=== PATIENT | female | born 1980 | race Caucasian/White ===

== ENCOUNTER 2021-04-19 19:15 | Emergency (ER) | payer BC, SELFPAY ==
[2021-04-19 19:27] VITALS: BP 122/71; PULSE 100; RESP 16; TEMP 36.6; O2SAT 98
--- NOTE | 2021-04-19 19:46 | ED.SKABFB ---
HPI - Skin/Abscess/Foreign Bdy General Chief complaint: Skin/Abscess/Foreign Body Stated complaint: LICE/EYE REDNESS Source: patient and RN notes reviewed Limitations: no limitations History of Present Illness HPI narrative: The patient, previously healthy non-smoker/nondrinker does not wear eyeglasses/contacts, presents with left eye discomfort. Patient states she was recently treated for lice with 5% Elimite. She now notes that her arms have improved but she has eyebrow and eyelash discomfort. This is associated with mild eye discharge, photophobia and redness. Patient advised to see eye doctor in follow-up Related Data Home Medications Medication Instructions Recorded Confirmed Wellbutrin 04/19/21 metoprolol tartrate 04/19/21 Allergies Allergy/AdvReac Type Severity Reaction Status Date / Time meperidine Allergy Mild Anxiety Verified 09/10/19 17:09 metoclopramide Allergy Mild Anxiety Verified 09/10/19 17:09 Penicillins Allergy Mild Rash Verified 09/10/19 17:09 promethazine Allergy Mild RESTLESS Verified 09/10/19 17:09 LEG SYNDROME adhesive Allergy Unknown RASH Verified 09/10/19 17:09 ampicillin Allergy Unknown Rash Verified 09/10/19 17:09 KETOROLAC TROMETHAMINE Allergy Mild Abdominal Uncoded 09/10/19 17:09 Pain Review of Systems Review of Systems: Narrative: General/Constitutional: No weight loss,fever Eyes: REPORTS: Redness,discharge Ears/Nose/Throat: No: Epistaxis,ear discharge Respiratory: Denies: Hemoptysis Gastrointestinal: No Vomiting, Bleeding-rectal Skin: No Lumps, eruption Neurologic: No Focal Weakness,Sz Hematologic: Denies: Petechiae/Purpura Psychiatric: No: Suicida ideationl All Other Systems: Reviewed and Negative PMFSH Comments At time of signature, agree with nursing past medical, surgical, social and family history. There is no relevant family history pertinent to the presenting complaint Exam Narrative: Exam Narrative: General Appearance: Well nourished, No distress EYE: PERRLA , Mpky-ovfukaxb-vjuenn: excoriated eyebrow, EOMI, Lens nl, Nl corneas -no fluorescein uptake, anterior chamber deep, Conjunctiva injection Ears: External ear normal, Auditory canal normal Nose: Normal nose, Nares clear Mouth/Throat: Normal appearing, Normal lips Neck: Supple, No adenopathy Respiratory: Airway patent, No respiratory distress Skin: Warm, Dry, no nits seen; scattered acneiform and follicular changes on the face Neurological: A&O x3, CN II-X intact Psychiatric: Normal mood, Normal affect Course Vital Signs Vital signs: Vital Signs Temperature 98 F 04/19/21 19:27 Pulse Rate 100 04/19/21 19:27 Respiratory Rate 16 04/19/21 19:27 Blood Pressure 122/71 04/19/21 19:27 Pulse Oximetry 98 04/19/21 19:27 Temperature 98 F 04/19/21 19:27 Pulse Rate 100 04/19/21 19:27 Respiratory Rate 16 04/19/21 19:27 Blood Pressure 122/71 04/19/21 19:27 Pulse Oximetry 98 04/19/21 19:27 Discharge Plan Discharge Clinical Impression: Pruritic condition Conjunctivitis Qualifiers: Conjunctivitis type: acute Acute conjunctivitis type: unspecified Laterality: left Qualified Code(s): H10.32 - Unspecified acute conjunctivitis, left eye Patient Disposition: Home, Self-Care Condition: Stable Instructions: Antibiotic Form, Conjunctivitis (ED) Additional Instructions: See eye doctor in follow-up if not improved Take clindamycin with food, probiotic; stop if diarrhea occurs Prescriptions: New sulfacetamide sodium [Bleph-10] 10 % drops 1 drp LEFT EYE Q4H Qty: 5 RF: 0 clindamycin HCl 300 mg capsule 300 mg PO TID Qty: 15 RF: 0 permethrin [Elimite] 5 % cream 1 applic topical Q10D Qty: 60 RF: 0 No Action Wellbutrin RF: 0 metoprolol tartrate RF: 0 Follow-up/Referrals: PHYSICIAN,ACCOUNTING/FINANCE TUTOR [Primary Care Provider] -
== END 2021-04-19 19:54 | disposition home or self-care (01) ==
PROVIDERS: Emergency Provider Emergency Medicine
DX: H10.32 Unspecified acute conjunctivitis, left eye (principal); L29.9 Pruritus, unspecified
CPT/HCPCS: 99213; A9270; G0463

== ENCOUNTER 2021-05-18 10:09 | Emergency (ER) | payer BC, SELFPAY ==
[2021-05-18 10:14] VITALS: BP 98/67; PULSE 74; RESP 12; TEMP 36.4; O2SAT 99
--- NOTE | 2021-05-18 10:19 | ED.SKABFB ---
HPI - Skin/Abscess/Foreign Bdy General Chief complaint: Skin/Abscess/Foreign Body Stated complaint: pos scabies Source: patient and RN notes reviewed Mode of arrival: ambulatory History of Present Illness HPI narrative: This is a 40-year-old female who presented to urgent care with complaints of skin irritation and bugs crawling out of her skin. Patient was previously here and was treated for scabies she did note that she started her medication for scabies but discontinued the use of because she thought she contaminated the medication and witnessed worms crawling in the medication. Patient does have small open scabs on her upper and lower extremity. She notes that she saw worms crawling from underneath her skin on her previous visit to urgent care as well. Patient also noted that she has recently had a medication adjustment from her psychiatrist. Inform patient that she needs to contact her psychiatrist again and inform him of her situation and her anxiety. I did prescribe her new medication for scabies and instructed her to fumigate her home for fleas in her dog as well. The patient denies SOB, CP, palpitation, extremity numbness, lightheadedness, dizziness, constipation, diarrhea, chills, or fever. Patient did deny any suicidal or homicidal ideations MD complaint: laceration and insect bite/sting Location: generalized Related Data Home Medications Medication Instructions Recorded Confirmed Wellbutrin 04/19/21 metoprolol tartrate 04/19/21 Allergies Allergy/AdvReac Type Severity Reaction Status Date / Time meperidine Allergy Mild Anxiety Verified 05/18/21 10:15 metoclopramide Allergy Mild Anxiety Verified 05/18/21 10:15 Penicillins Allergy Mild Rash Verified 05/18/21 10:15 promethazine Allergy Mild RESTLESS Verified 05/18/21 10:15 LEG SYNDROME adhesive Allergy Unknown RASH Verified 05/18/21 10:15 ampicillin Allergy Unknown Rash Verified 05/18/21 10:15 KETOROLAC TROMETHAMINE Allergy Mild Abdominal Uncoded 05/18/21 10:15 Pain Review of Systems Review of Systems: Narrative: A 14 organ system Review of Systems was performed and pertinent positives included in the HPI, otherwise remaining ROS is negative. All systems reviewed & are unremarkable except as noted in HPI and below PMFSH Family History Family History (Updated 05/18/21 @ 10:20 by KHANG Ramos) Other Family history non-contributory Exam Narrative: Exam Narrative: GENERAL: This is a well-nourished, well-developed patient, in no apparent distress. HEAD: normocephalic, atraumatic. EYES: PERRL. Sclera clear/white. Vision is grossly intact. EARS: External ears normal, auditory canals clear and without drainage, TMs normal without perforation. Hearing grossly intact. NOSE: External nose normal with no obvious nasal discharge, nares without redness, no rhinorrhea. THROAT: Mucous membranes moist, posterior pharynx clear. NECK: Neck supple, non-tender without lymphadenopathy, masses or thyromegaly. CARDIOVASCULAR: Regular rate and rhythm without murmurs, gallops, or rubs. RESPIRATORY: Clear to auscultation. Breath sounds equal bilaterally. No wheezes, rales, or rhonchi. GASTROINTESTINAL: Abdomen soft, non-tender, nondistended. Bowel sounds are active. No hepato-splenomegaly, or palpable masses. No guarding. SKIN: Old and new open and close pinpoint lesions on generalized body including face NEURO: awake, alert, and oriented to person, place and time. There were no obvious focal neurologic abnormalities. Steady gait EXTREMITIES: Normal range of motion. No edema. No calf tenderness. Negative Homans sign bilaterally. BACK: Nontender without deformity or crepitance. No flank tenderness. Course Course Emergency Course: Patient prescribed medication for scabies also given prednisone with hydrocortisone and instructed to see psychiatrist Vital Signs Vital signs: Vital Signs Temperature 97.5 F L 05/18/21 10:14 Pulse Rate 74 05/18/21 10
== END 2021-05-18 10:46 | disposition home or self-care (01) ==
PROVIDERS: Emergency Provider Nurse Practitioner
DX: L25.9 Unspecified contact dermatitis, unspecified cause (principal); T14.8XXA Other injury of unspecified body region, initial encounter; W57.XXXA Bitten or stung by nonvenomous insect and other nonvenomous arthropods, initial encounter
CPT/HCPCS: 99213; G0463

== ENCOUNTER 2022-06-06 17:55 | Emergency (ER) | payer BC, SELFPAY ==
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
[2022-06-06 18:01] VITALS: BP 120/73; PULSE 107; RESP 16; TEMP 37.1; O2SAT 100
== END 2022-06-06 18:50 | disposition home or self-care (01) ==
PROVIDERS: Emergency Provider Nurse Practitioner Family
DX: F41.9 Anxiety disorder, unspecified (principal); Z76.0 Encounter for issue of repeat prescription; Z86.73 Personal history of transient ischemic attack (TIA), and cerebral infarction without residual deficits
CPT/HCPCS: 99213; G0463

== ENCOUNTER 2022-07-28 16:27 | Emergency (ER) | payer BC, SELFPAY ==
--- NOTE | 2022-07-28 16:32 | ED.SKABFB ---
HPI - Skin/Abscess/Foreign Bdy General Chief complaint: Skin/Abscess/Foreign Body Stated complaint: Poison Rosa Time Seen by Provider: 07/28/22 16:32 Source: patient and RN notes reviewed History of Present Illness HPI narrative: Patient is a 41-year-old female who presents the urgent care with complaints of itchy poison rosa to the face, chest and right ankle. Patient states she noticed it at 2 AM this morning and has not taken anything [id number] for her symptoms. Patient also states that she needs a refill of her metoprolol until she is able to see her primary care doctor. Patient states she has a couple pills left and follows up with her new PCP, within the next week. No other acute complaints. No acute distress noted. Patient aware of the plan of care. Some parts of this dictation were generated by voice recognition software and may contain typographical and/or grammatical inaccuracies. Related Data Allergies Allergy/AdvReac Type Severity Reaction Status Date / Time adhesive Allergy Mild RASH Verified 07/28/22 16:49 ampicillin Allergy Mild Rash Verified 07/28/22 16:49 Penicillins Allergy Mild Rash Verified 07/28/22 16:49 ketorolac [From Toradol] AdvReac Mild Nausea and Verified 07/28/22 16:49 Vomiting meperidine AdvReac Mild Anxiety Verified 07/28/22 16:49 metoclopramide AdvReac Mild Anxiety Verified 07/28/22 16:49 promethazine AdvReac Mild RESTLESS Verified 07/28/22 16:49 LEG SYNDROME Review of Systems Review of Systems: CONSTITUTIONAL: Denies fever, chills, or sweats. EYES: Denies visual changes, redness, or discharge. ENT: Denies rhinorrhea, congestion, sore throat, or otalgia. CARDIOVASCULAR: Denies chest pain, palpitations, or edema. RESPIRATORY: Denies cough or dyspnea. GASTROINTESTINAL: Denies abdominal pain, nausea, vomiting, or diarrhea. GENITOURINARY: Denies dysuria or hematuria. SKIN: Reports of itchy poison rosa to the face, chest and right ankle MUSCULOSKELETAL: Denies back pain, joint pain, or myalgia. NEUROLOGIC: Denies headache, numbness, or weakness. PSYCHIATRIC: Reports of history of anxiety All other systems reviewed are negative, except as documented in HPI. [facility] Family History Family History (System 12/29/21 @ 17:12 by Emani Lindsay) Mother Family history of elevated blood lipids Other Family history non-contributory Social History Social History (System 12/29/21 @ 17:12 by Emani Lindsay) Alcohol intake: current Comments At the time of my signature, I reviewed and agree with the nursing past medical, surgical, social, and family history. There is no relevant family history pertinent to the patient complaint. Exam Narrative: GENERAL: This is a well-nourished, well-developed patient, notable anxiety HEAD: normocephalic, atraumatic. EYES: PERRL. Sclera clear/white. Vision is grossly intact. EARS: External ears normal NOSE: External nose normal with no obvious nasal discharge, nares without redness, no rhinorrhea. THROAT: Mucous membranes moist NECK: Neck supple, non-tender without lymphadenopathy, masses or thyromegaly. CARDIOVASCULAR: Regular rate and rhythm without murmurs, gallops, or rubs. RESPIRATORY: Clear to auscultation. Breath sounds equal bilaterally. No wheezes, rales, or rhonchi. SKIN: Erythemic Rhus dermatitis scattered throughout the face, chest and right lateral malleolus NEURO: awake, alert, and oriented to person, place and time. There were no obvious focal neurologic abnormalities. EXTREMITIES: No clubbing, cyanosis, or edema. Course Course Level of Care: Express Care Visit Vital Signs Vital signs: Vital Signs Temperature 99.8 F H 07/28/22 16:40 Pulse Rate 135 H 07/28/22 16:40 Respiratory Rate 16 07/28/22 16:40 Blood Pressure 108/73 07/28/22 16:40 Pulse Oximetry 100 07/28/22 16:40 Oxygen Delivery Room Air 07/28/22 16:40 Temperature 99.8 F H 07/28/22 16:40 Pulse Rate 135 H 07/28/22 16:40 Respiratory Rate 16
[2022-07-28 16:40] VITALS: BP 108/73; PULSE 135; RESP 16; TEMP 37.7; O2SAT 100
== END 2022-07-28 17:05 | disposition home or self-care (01) ==
PROVIDERS: Emergency Provider Nurse Practitioner Family
DX: L23.7 Allergic contact dermatitis due to plants, except food (principal); Z86.73 Personal history of transient ischemic attack (TIA), and cerebral infarction without residual deficits
CPT/HCPCS: 99213; G0463

== ENCOUNTER 2023-01-19 18:00 | Emergency (ER) | payer BC, SELFPAY ==
[2023-01-19 18:06] VITALS: BP 105/77; PULSE 82; RESP 20; TEMP 36.6; O2SAT 100
--- NOTE | 2023-01-19 18:26 | PC.NURSE ---
DUPLICATE CHART NOTED. NITIN GUY PT ACCESS STAFF SENT EMAIL TO MERGE CHARTS TOGETHER. GHULAM FERNANDEZ RN.
--- NOTE | 2023-01-19 18:32 | ED.ALLEREA ---
HPI - Allergic Reaction General Chief complaint: Skin/Abscess/Foreign Body Stated complaint: rash all over Time Seen by Provider: 01/19/23 18:32 History of Present Illness HPI narrative: PATIENT PRESENTS WITH HIVES TO BOTH ARMS FEET AND LEGS. NO RESPIRATORY PROBLEMS NO CHANGE IN LIFE STYLE PATIENT HAS APPLIED HYDROCORTISONE CREAM WITH NO RELEIF. Related Data Home Medications Medication Instructions Recorded Confirmed bupropion HCl 300 mg 24 hr tablet, 300 mg PO DIRECTED 01/19/23 01/19/23 extended release metoprolol succinate 100 mg 100 mg PO DIRECTED 01/19/23 01/19/23 tablet,extended release 24 hr Allergies Allergy/AdvReac Type Severity Reaction Status Date / Time adhesive Allergy Rash Verified 01/19/23 18:26 ampicillin Allergy Rash Verified 01/19/23 18:26 Penicillins Allergy Rash Verified 01/19/23 18:26 ketorolac [From Toradol] AdvReac Nausea and Verified 01/19/23 18:26 Vomiting meperidine AdvReac Anxiety Verified 01/19/23 18:26 metoclopramide AdvReac Anxiety Verified 01/19/23 18:26 promethazine AdvReac Other Verified 01/19/23 18:26 Review of Systems Review of Systems: CONSTITUTIONAL: DENIES FEVER, CHILLS, OR SWEATS. EYES: DENIES VISUAL CHANGES, REDNESS, OR DISCHARGE. ENT: DENIES RHINORRHEA, CONGESTION, SORE THROAT, OR OTALGIA. CARDIOVASCULAR: DENIES CHEST PAIN, PALPITATIONS, OR EDEMA. RESPIRATORY: DENIES COUGH OR DYSPNEA. GASTROINTESTINAL: DENIES ABDOMINAL PAIN, NAUSEA, VOMITING, OR DIARRHEA. GENITOURINARY: DENIES DYSURIA OR HEMATURIA. SKIN: DENIES RASH OR ITCHING. MUSCULOSKELETAL: DENIES BACK PAIN, JOINT PAIN, OR MYALGIA. NEUROLOGIC: DENIES HEADACHE, NUMBNESS, OR WEAKNESS. PSYCHIATRIC: DENIES ANXIETY OR DEPRESSION. PMFSH Comments AT TIME OF SIGNATURE, AGREE WITH NURSING PAST MEDICAL, SURGICAL, SOCIAL AND FAMILY HISTORY. THERE IS NO RELEVANT FAMILY HISTORY PERTINENT TO THE PRESENTING COMPLAINT Exam Narrative: GENERAL: WELL-APPEARING, WELL-NOURISHED, AND IN NO ACUTE DISTRESS. HEAD: NORMOCEPHALIC, ATRAUMATIC. EYES: PERRLA AND EOMI. ENT: NARES CLEAR, NO RHINORRHEA OR EPISTAXIS. MUCOUS MEMBRANES MOIST. NECK: SUPPLE. CHEST: CLEAR TO AUSCULTATION. NO RESPIRATORY DISTRESS. HEART: REGULAR RATE AND RHYTHM. NO MURMUR HEARD. NORMAL PERIPHERAL PULSES. ABDOMEN: SOFT, NONTENDER, NONDISTENDED, NORMAL ACTIVE BOWEL SOUNDS. EXTREMITIES: NORMAL RANGE OF MOTION. NO EDEMA. SKIN: WARM, DRY, NO RASH. NON SPECIFIC GENERALIZED RASH. NO FLUID FILLED LESIONS, NO VESICLES, NO HIVES OR URTICARIA, NO BURROWS OR RASH IN WEB SPACES TO INDICATE SCABIES, NO CONCERN FOR CELLULITIS OR ABSCESS FORMATION. NO PURPURA OR PETECHIA. DOES NOT INVOLVE THE SOLES OF FEET OR PALMS OF HANDS OR THE MUCOSAL MEMBRANES. NO SLOUGHING OR SWELLING OF TONGUE OR LIPS. NEURO: NO FOCAL DEFICITS. ALERT AND ORIENTED X3. SORIN COMA SCALE EYE OPENING: SPONTANEOUS 4 SORIN COMA SCALE MOTOR: OBEYS COMMANDS 6 SORIN COMA SCALE VERBAL: ORIENTED 5 SORIN COMA SCALE TOTAL 15 Course Course Level of Care: Express Care Visit Vital Signs Vital signs: Vital Signs Temperature 36.6 C 01/19/23 18:06 Pulse Rate 82 01/19/23 18:06 Respiratory Rate 20 01/19/23 18:06 Blood Pressure 105/77 01/19/23 18:06 Pulse Oximetry 100 01/19/23 18:06 Oxygen Delivery Room Air 01/19/23 18:06 Temperature 36.6 C 01/19/23 18:06 Pulse Rate 82 01/19/23 18:06 Respiratory Rate 20 01/19/23 18:06 Blood Pressure 105/77 01/19/23 18:06 Pulse Oximetry 100 01/19/23 18:06 Oxygen Delivery Room Air 01/19/23 18:06 I reviewed all medications, tests and and results of this visit with patient. Patient acknowledged understanding. Patient was discharged with instructions to follow up with PCP or specialist in clinic closely in followup, or to immediately return to the ED for any worsening or concerning signs and symptoms as discussed during this ED visit. I discussed high risk symptoms (red flag) with the patient that would warrant immediate re
[2023-01-19] MEDS: diphenhydrAMINE HCl INJ 50 MG/ML VIAL IM (18:45)
[2023-01-19] MEDS: methylPREDNISolone SOD SUCC 125 MG VIAL IM (18:45)
== END 2023-01-19 18:53 | disposition home or self-care (01) ==
PROVIDERS: Emergency Provider Nurse Practitioner Family; PCP Internal Medicine
DX: L50.9 Urticaria, unspecified (principal); I10 Essential (primary) hypertension
CPT/HCPCS: 96372; 99214; G0463; J1200; J2930

== ENCOUNTER 2024-05-24 11:06 | Emergency (ER) | payer BC, SELFPAY ==
[2024-05-24 11:12] VITALS: BP 110/84; PULSE 107; RESP 20; TEMP 36.2; O2SAT 100
--- NOTE | 2024-05-24 11:22 | ED.GENADULT ---
HPI - General Adult General Chief complaint: Unspecified Stated complaint: prescription refill History of Present Illness HPI narrative: Patient presents requesting a refill on her metoprolol. Patient states she has not been able to get in to see her primary care provider to get a refill. Patient denies any shortness of breath no chest pain. Patient has the bottle for refill prescription with her at this time. Patient denies any other complaints or concerns at this time. Related Data Allergies Allergy/AdvReac Type Severity Reaction Status Date / Time adhesive Allergy Rash Verified 01/22/23 15:06 ampicillin Allergy Rash Verified 01/22/23 15:06 Penicillins Allergy Rash Verified 01/22/23 15:06 ketorolac [From Toradol] AdvReac Nausea and Verified 01/22/23 15:06 Vomiting meperidine AdvReac Anxiety Verified 01/22/23 15:06 metoclopramide AdvReac Anxiety Verified 01/22/23 15:06 promethazine AdvReac Other Verified 01/22/23 15:06 Review of Systems Review of Systems: CONSTITUTIONAL: Denies fever, chills, or sweats. EYES: Denies visual changes, redness, or discharge. ENT: Denies rhinorrhea, congestion, sore throat, or otalgia. CARDIOVASCULAR: Denies chest pain, palpitations, or edema. RESPIRATORY: Denies cough or dyspnea. GASTROINTESTINAL: Denies abdominal pain, nausea, vomiting, or diarrhea. GENITOURINARY: Denies dysuria or hematuria. SKIN: Denies rash or itching. MUSCULOSKELETAL: Denies back pain, joint pain, or myalgia. NEUROLOGIC: Denies headache, numbness, or weakness. PSYCHIATRIC: Denies anxiety or depression. PMFSH Family History Family History (System 01/22/23 @ 15:06 by Sloane Huber) Mother Family history of elevated blood lipids Other Family history non-contributory Social History Social History (System 01/22/23 @ 15:06 by Sloane Huber) Alcohol intake: current Comments At time of signature, agree with nursing past medical, surgical, social and family history. There is no relevant family history pertinent to the presenting complaint Exam Narrative: GENERAL: Well-appearing, well-nourished, and in no acute distress. HEAD: Normocephalic, atraumatic. EYES: PERRLA and EOMI. ENT: Nares clear, no rhinorrhea or epistaxis. Mucous membranes moist. NECK: Supple. CHEST: Clear to auscultation. No respiratory distress. HEART: Regular rate and rhythm. No murmur heard. Normal peripheral pulses. ABDOMEN: Soft, nontender, nondistended, normal active bowel sounds. EXTREMITIES: Normal range of motion. No edema. SKIN: Warm, dry, no rash. NEURO: No focal deficits. Alert and oriented x3. [place] Coma Scale Eye Opening: Spontaneous 4 [place] Coma Scale Motor: Obeys Commands 6 [place] Coma Scale Verbal: Oriented 5 [place] Coma Scale Total 15 Course Course Level of Care: Express Care Visit Vital Signs Vital signs: Vital Signs Temperature 36.2 C L 05/24/24 11:12 Pulse Rate 107 H 05/24/24 11:12 Respiratory Rate 20 05/24/24 11:12 Blood Pressure 110/84 05/24/24 11:12 Pulse Oximetry 100 05/24/24 11:12 Oxygen Delivery Room Air 05/24/24 11:12 Temperature 36.2 C L 05/24/24 11:12 Pulse Rate 107 H 05/24/24 11:12 Respiratory Rate 20 05/24/24 11:12 Blood Pressure 110/84 05/24/24 11:12 Pulse Oximetry 100 05/24/24 11:12 Oxygen Delivery Room Air 05/24/24 11:12 Discussed with patient need to follow up with primary care provider for re-evaluation and importance to maintain medication compliance and follow-up with primary care provider for prescription renewal. Discussed all red flags and when to go to ER. Medical Decision Making Vital Signs Vital Signs: Vital Signs Temperature 36.2 C L 05/24/24 11:12 Pulse Rate 107 H 05/24/24 11:12 Respiratory Rate 20 05/24/24 11:12 Blood Pressure 110/84 05/24/24 11:12 Pulse Oximetry 100 05/24/24 11:12 Oxygen Delivery Room Air 05/24/24 11:12 Temperature 36.2 C L 05/24/24 11:12 Pulse Rate 107 H
== END 2024-05-24 11:30 | disposition home or self-care (01) ==
PROVIDERS: Emergency Provider Nurse Practitioner Family
DX: Z76.0 Encounter for issue of repeat prescription (principal); I10 Essential (primary) hypertension; Z86.73 Personal history of transient ischemic attack (TIA), and cerebral infarction without residual deficits
CPT/HCPCS: 99211; G0463

== ENCOUNTER 2024-08-02 17:48 | Emergency (ER) | payer BC, SELFPAY ==
[2024-08-02 17:58] VITALS: BP 97/72; PULSE 94; RESP 18; TEMP 37; O2SAT 100
--- NOTE | 2024-08-02 18:46 | ED.GENADULT ---
HPI - General Adult General Chief complaint: Upper Respiratory Infection Stated complaint: Cough up Blood/Chest Congestion/Urinary Problem Source: patient, RN notes reviewed and old records reviewed Mode of arrival: ambulatory Limitations: no limitations History of Present Illness HPI narrative: 43 year old female presents to [facility] care with complaints of having 2 day history of cough with chest tightness and heaviness and post nasal drainage. Patient reports that she coughed this morning hard and did have some blood in her sputum but didn't have any further blood in sputum throughout the day. Patient reports that she has some lower back discomfort across her back and states history of kidney stones and would like urine check for blood, urine test ran with noted abnormalities indicating infection, Patient also states that she wants urine testing for STD's sent has new partner for past month. MD complaint: URI symptoms and cough, concern for STD exposure and UTI Onset (ago): week(s) (2) Severity scale (1-10): 4 Pain Consistency: intermittent Treatments prior to arrival: none Related Data Allergies Allergy/AdvReac Type Severity Reaction Status Date / Time adhesive Allergy Rash Verified 08/02/24 18:08 ampicillin Allergy Rash Verified 08/02/24 18:08 Penicillins Allergy Rash Verified 08/02/24 18:08 ketorolac [From Toradol] AdvReac Nausea and Verified 08/02/24 18:08 Vomiting meperidine AdvReac Anxiety Verified 08/02/24 18:08 metoclopramide AdvReac Anxiety Verified 08/02/24 18:08 promethazine AdvReac Other Verified 08/02/24 18:08 Review of Systems Review of Systems: CONSTITUTIONAL: Denies fever, chills, or sweats. EYES: Denies visual changes, redness, or discharge. ENT: Reports rhinorrhea, congestion,no sore throat, no otalgia. CARDIOVASCULAR: Denies chest pain, palpitations, or edema. states some chest heaviness with cough RESPIRATORY: Reports cough , dyspnea at times with exertion GASTROINTESTINAL: Denies abdominal pain, nausea, vomiting, or diarrhea. GENITOURINARY: Denies dysuria or hematuria. SKIN: Denies rash or itching. MUSCULOSKELETAL: Reports lower back pain, joint pain, or myalgia. NEUROLOGIC: Denies headache, numbness, or weakness. PSYCHIATRIC: Positive for history of anxiety or depression. All systems reviewed & are unremarkable except as noted in HPI and below PMFSH Past Medical History Medical History Kidney stone Palpitations Panic attacks TIA (transient ischemic attack) UTI (urinary tract infection) Surgical History Surgical History (Updated 08/02/24 @ 20:02 by Maureen Church NP) History of partial hysterectomy History of tonsillectomy and adenoidectomy Hx of appendectomy Hx of cholecystectomy Previous section Family History Family History Mother Family history of elevated blood lipids Other Family history non-contributory Social History Social History Smoking status: Current every day smoker Tobacco type: e-cigarettes/vaping Additional smoking assessment comments: former cigarette use Alcohol intake: former Alcohol use details: no alcohol since 2017 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 There is no relevant family history pertinent to the presenting complaint Exam Narrative: GENERAL: Well-appearing, well-nourished, and in no acute distress. HEAD: Normocephalic, atraumatic. EYES: PERRLA and EOMI. ENT: Nares clear,clear rhinorrhea or epistaxis. Mucous membranes moist.TM's normal throat pink with no lesion or exudates,tonsil absent NECK: Supple.no lymphadenopathy CHEST: Clear to auscultation. No respirator
[2024-08-02 18:59] LABS: EDUAAPPEAR Cloudy; EDUABILI Negative (Negative); EDUABLOOD Trace (Negative); EDUACOLOR1 Yellow; EDUAGLUCOSE Negative (Negative); EDUAKETONE Negative (Negative); EDUALEUKO 1+ (Negative); EDUANITRATE Positive (Negative); EDUAPROTEIN Trace (Negative); EDUAUROBILI 0.2
[2024-08-05 14:23] LABS: Trichomonas Vag PCR DETECTED (NOT DETECTE)
[2024-08-05 14:57] LABS: Chlamydia trachomatis NOT DETECTED (NOT DETECTE); Neisseria gonorrhoeae PCR NOT DETECTED (NOT DETECTE)
== END 2024-08-02 19:10 | disposition home or self-care (01) ==
PROVIDERS: Emergency Provider Registered Nurse; PCP Internal Medicine
DX: J06.9 Acute upper respiratory infection, unspecified (principal); N39.0 Urinary tract infection, site not specified; B96.20 Unspecified Escherichia coli [E. coli] as the cause of diseases classified elsewhere; F17.290 Nicotine dependence, other tobacco product, uncomplicated; Z86.73 Personal history of transient ischemic attack (TIA), and cerebral infarction without residual deficits
CPT/HCPCS: 81003; 87077; 87086; 87186; 87491; 87591; 87661; 99213; G0463

== ENCOUNTER 2024-08-29 15:46 | Emergency (ER) | payer BC, SELFPAY ==
[2024-08-29 16:00] VITALS: BP 98/69; PULSE 80; RESP 18; TEMP 36.7; O2SAT 100
--- NOTE | 2024-08-29 16:16 | ED.FEMALEGU ---
HPI - Female Genitourinary General Chief complaint: Urogenital-Female Stated complaint: poss UTI Time Seen by Provider: 08/29/24 15:48 History of Present Illness HPI Narrative: Patient presents requesting being tested for STIs. Patient states 10 days ago she was tested and was positive for Trichomonas. Patient states she did take her full course of medication but did not refrain from sexual activity with her partner. Patient states her partner was also tested for Trichomonas and is asymptomatic. Patient is concerned that her infection did not totally resolved. She denies any abdominal pain no pelvic pain no suprapubic pain no flank pain no gross hematuria. Related Data Allergies Allergy/AdvReac Type Severity Reaction Status Date / Time adhesive Allergy Rash Verified 08/29/24 15:59 ampicillin Allergy Rash Verified 08/29/24 15:59 Penicillins Allergy Rash Verified 08/29/24 15:59 ketorolac [From Toradol] AdvReac Nausea and Verified 08/29/24 15:59 Vomiting meperidine AdvReac Anxiety Verified 08/29/24 15:59 metoclopramide AdvReac Anxiety Verified 08/29/24 15:59 promethazine AdvReac Other Verified 08/29/24 15:59 Review of Systems Review of Systems: CONSTITUTIONAL: Denies fever, chills, or sweats. EYES: Denies visual changes, redness, or discharge. ENT: Denies rhinorrhea, congestion, sore throat, or otalgia. CARDIOVASCULAR: Denies chest pain, palpitations, or edema. RESPIRATORY: Denies cough or dyspnea. GASTROINTESTINAL: Denies abdominal pain, nausea, vomiting, or diarrhea. GENITOURINARY: Denies dysuria or hematuria. SKIN: Denies rash or itching. MUSCULOSKELETAL: Denies back pain, joint pain, or myalgia. NEUROLOGIC: Denies headache, numbness, or weakness. PSYCHIATRIC: Denies anxiety or depression. [facility] Past Medical History Medical History (Updated 08/29/24 @ 16:23 by GEORGI Mendenhall) Kidney stone Palpitations Panic attacks TIA (transient ischemic attack) UTI (urinary tract infection) Surgical History Surgical History (Updated 08/02/24 @ 20:02 by Maureen Church NP) History of partial hysterectomy History of tonsillectomy and adenoidectomy Hx of appendectomy Hx of cholecystectomy Previous section Family History Family History Mother Family history of elevated blood lipids Other Family history non-contributory Social History Social History Smoking status: Current every day smoker Tobacco type: e-cigarettes/vaping Additional smoking assessment comments: former cigarette use Alcohol intake: former Alcohol use details: no alcohol since 2017 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 There is no relevant family history pertinent to the presenting complaint Exam Narrative: GENERAL: Well-appearing, well-nourished, and in no acute distress. HEAD: Normocephalic, atraumatic. EYES: PERRLA and EOMI. ENT: Nares clear, no rhinorrhea or epistaxis. Mucous membranes moist. NECK: Supple. CHEST: Clear to auscultation. No respiratory distress. HEART: Regular rate and rhythm. No murmur heard. Normal peripheral pulses. ABDOMEN: Soft, nontender, nondistended, normal active bowel sounds. EXTREMITIES: Normal range of motion. No edema. SKIN: Warm, dry, no rash. NEURO: No focal deficits. Alert and oriented x3. [place] Coma Scale Eye Opening: Spontaneous 4 [place] Coma Scale Motor: Obeys Commands 6 [place] Coma Scale Verbal: Oriented 5 [place] Coma Scale Total 15 Course Course Level of Care: Express Care Visit Discharge Plan Discharge Clinical Impression: STI in female, Concern about STD in female without diagnosis Patient Disposition: Home, Self-Care Condition: Stable Instructions: Sexually Transmitted Diseases (ED), Safe Sex Practices (ED), Female Condom Use (ED) Additional Instructions: Please discuss testing and treating with all recent sexual partners, and advise testing as well. Please abstain from sexual activity for 7 days after treatment and until all sex partners have completed treatment, or until negative cultures result If treated for STD?s please consider being retested 3 months after treatment regardless if partners were treated. This can best be done at the Health Department or at [employer], PCP or [facility] does not test and treat for all STD?s. If you are a male, Trichomoniasis is not tested for here. Also, we do not test for HIV, HSV. Syphilis, or Hepatitis, but these are available at the health department listed below. STD Clinic - Please do not engage in sexual activity for at least 7 days after being treated for STDs Prescriptions: New Zyrtec 10 mg capsule 10 mg PO DAILY 30 Days Qty: 30 0RF No Action metoprolol tartrate 50 mg tablet 50 mg PO BID Qty: 30 0RF Follow-up/Referrals: PHYSICIAN,RECORDING STUDIO SET UP WORKER [Primary Care Provider] - Raul Baptiste MD [Physician] -
[2024-08-29 16:24] LABS: EDUAAPPEAR Cloudy; EDUABILI Negative (Negative); EDUABLOOD Trace (Negative); EDUACOLOR1 Yellow; EDUAGLUCOSE Negative (Negative); EDUAKETONE Negative (Negative); EDUALEUKO 1+ (Negative); EDUANITRATE Negative (Negative); EDUAPROTEIN Negative (Negative); EDUASPGRAVITY 1.015; EDUAUROBILI 0.2
[2024-08-29 20:47] LABS: Trichomonas Vag PCR NOT DETECTED (NOT DETECTE)
[2024-08-29 21:11] LABS: Chlamydia trachomatis NOT DETECTED (NOT DETECTE); Neisseria gonorrhoeae PCR NOT DETECTED (NOT DETECTE)
--- NOTE | 2024-08-30 12:26 | PC.NURSE ---
Attempted to call lab results to patient, phone was not set up for some incoming calls. Restrictions were applied. Unable to leave a message.
== END 2024-08-29 16:25 | disposition home or self-care (01) ==
PROVIDERS: Emergency Provider Nurse Practitioner Family
DX: Z11.3 Encounter for screening for infections with a predominantly sexual mode of transmission (principal); N39.0 Urinary tract infection, site not specified; B96.1 Klebsiella pneumoniae [K. pneumoniae] as the cause of diseases classified elsewhere; Z86.73 Personal history of transient ischemic attack (TIA), and cerebral infarction without residual deficits; F17.290 Nicotine dependence, other tobacco product, uncomplicated
CPT/HCPCS: 81003; 87086; 87186; 87491; 87591; 87661; 99213; G0463

== ENCOUNTER 2025-07-16 10:53 | Emergency (ER) | payer BC, SELFPAY ==
--- OUTSIDE RECORDS SUMMARY | 2025-07-16 10:57 | XMS_ITS | Clinical Summary ---
Author Organization [facility] Address [address] [place] [address] Phone Care Team Providers Care Extension Professor Name Role Phone JoaquinSlaone Tadeo MCINTOSH, [employer] Primary Care Provider [phone]- [phone] Joseph Mclaughlin MD Unavailable Allergies Active Allergy Reactions Criticality Noted Date Comments Ampicillin Unknown 09/20/2015 Diphenhydramine Hcl (Sleep) Anxiety 10/12/2015 Prochlorperazine Maleate Anxiety 10/12/2015 Fentanyl Other (see Comments) 10/30/2024 Restless legs Promethazine Other (see Comments) 03/02/2025 Restless legs Metoclopramide Hcl Other (see Comments) 12/04/2015 STATES CAUSES LEG CRAMPS Ketorolac Tromethamine Rash Medium 09/20/2015 Medications cetirizine (ZyrTEC) 10 MG Tablet Take 1 Tablet by mouth daily. 90 Tablet 2 5 Active ciprofloxacin (CIPRO) 500 MG Tablet take 1 tablet by mouth every 12 hours for 7 days 5 Active valACYclovir (VALTREX) 1 GM Tablet Take 1 Tablet by mouth 2 times daily. 20 Tablet 5 Active cromolyn (OPTICROM) 4 % SolutionIndications :Allergic conjunctivitis of both eyes Place 1 Drop in affected eye(s) 4 times daily. Use in affected eye(s) until resolved 10 mL 5 Active buPROPion (WELLBUTRIN) 150 MG XL tablet TAKE 1 TABLET BY MOUTH ONCE DAILY IN THE MORNING 90 Tablet 5 Active metoprolol tartrate (LOPRESSOR) 50 MG TabletIndications:T achycardia Take 1 tablet by mouth twice daily 60 Tablet 2 5 Active Active Problems Problem Noted Date Diagnosed Date Insomnia 09/23/2018 Vitamin D deficiency 03/11/2018 Anxiety 12/04/2015 Tachycardia 12/04/2015 Intractable nausea and vomiting 12/04/2015 Hypokalemia 12/04/2015 Chest pain, non-cardiac 12/04/2015 Depression 09/20/2015 Weight loss 09/20/2015 Irritable bowel syndrome with diarrhea 5 Resolved Problems Problem Noted Date Diagnosed Date Resolved Date Kidney stone 10/31/2024 11/03/2024 Nephrolithiasis 10/31/2024 11/03/2024 TIA (transient ischemic attack) 11/03/2024 Encounters Date Type Department Care Team Description 05/24/2025 Telephone [facility] [address] [place] [id number] Sloane Nuñez APRN, [employer] Need Order 05/04/2025 Nurse Triage [address] [address] Sloane Nuñez APRN, [employer] Depression; Anxiety 04/24/2025 Refill [facility] [id number] [place] [address] Sloane Nuñez, ARNALDO, [employer] Medication Refill from Last 3 Months Immunizations Immunization Administration Dates Next Due Covid-19, Mrna, Lnp-s, Pf, T ris-sucrose, 30 Mcg/0.3 Ml ([employer]) 09/24/2023 Family History Medical History Relation Name Comments Heart Attack Father Stroke Father Lung Cancer Maternal Grandmother Depression Mother High Cholesterol Mother Uterine Cancer Mother Relation Name Status Comments Father Maternal Grandmother Mother Alive Social History Tobacco Use Types Packs/Day Years Used Date Smoking Tobacco: Former Cigarettes 0 02/26/2016 - 02/25/2017 Smokeless Tobacco: Never Tobacco Cessation:Counseling Given: Not Answered Alcohol Use Standard Drinks/Week Comments Not Currently 0 (1 standard drink = 0.6 oz pur e alcohol) [facility] Utilities Answer Date Recorded In the past 12 months has e electric, gas, oil, or water company threatened to shut off services in your home? Patient declined 10/31/2024 Social Connection and Isolation Panel Answer Date Recorded In a typical week, how many times do you talk on the phone with family, friends, or neighbors? Patient declined 10/31/2024 How often do you get togethe r with friends or relatives? Patient declined 10/31/2024 How often do you attend restorationism or congregation serv ices? Patient declined 10/31/2024 Do you belong to any clubs o r organizations such as restorationism groups, unions, fraternal or athletic groups, or school groups? Patient declined 10/31/2024 How often do you attend meet ings of the clubs or organizations you belong to? Patient declined 10/31/2024 Are you , , di vorced, , never , or living with a partner? Patient declined 10/31/2024 AUDIT-C Answer Date Recorded Q1: How often do you have a drink containing alc ohol? Patient declined 10/31/2024 Q2: How many drinks containi ng alcohol do you have on a typical day when you are drinking? Patient declined 10/31/2024 Q3: How often do you have si x or more drinks on one occasion? Patient declined 10/31/2024 Overall Financial Resource Strain (CARDIA) Answe r Date Recorded How hard is it for you to pa y for the very basics like food, housing, medical care, and heating? Patient declined 10/31/2024 PHQ-2 Answer Date Recorded Total Score - Questions 1-9 16 05/0 03/2025 [facility] - Occupational Stress Questionnaire Answer Date Recorded Do you feel stress - tense, restless, nervous, or anxious, or unable to sleep at night because your mind is troubled all the time - these days? Patient declined 10/31/2024 Exercise Vital Sign Answer Date Recorde d On average, how many days pe r week do you engage in moderate to strenuous exercise (like a brisk walk)? Patient declined On average, how many minutes do you engage in exercise at this level? Patient declined 10/31/2024 Hunger Vital Sign Answer Date Recorded Within the past 12 months, y ou worried that your food would run out before you got the money to buy more. Patient declined Within the past 12 months, t he food you bought just didn't last and you didn't have money to get more. Patient declined 01/2025 PRAPARE - Transportation Answer Date Re corded In the past 12 months, has l ack of transportation kept you from medical appointments or from getting medications? Patient declined 10/31/2024 In the past 12 months, has l ack of transportation kept you from meetings, work, or from getting things needed for daily living? Patient declined 10/31/2024 Housing Stability Vital Sign Answer Colton e Recorded In the last 12 months, was t here a time when you were not able to pay the mortgage or rent on time? Patient declined 10/31/19 25 In the past 12 months, how m any times have you moved where you were living? 0 10/31/2024 At any time in the past 12 m [facility], were you homeless or living in a [facility] (including now)? 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 Not on file Not on file Not on file Last Filed Vital Signs Vital Sign Reading Time Taken Comments Blood Pressure 100/68 04/01/2025 10:35 AM CDT Pulse 78 04/01/2025 10:35 AM CDT Temperature 36.6 C (97.9 F) 04/01/2025 10:35 AM CDT Respiratory Rate 20 04/01/2025 10:3 5 AM CDT Oxygen Saturation 100% 04/01/2025 10: 35 AM CDT Inhaled Oxygen Concentration - - Weight 57.5 kg (126 lb 11.2 oz) 025 10:35 AM CDT Height 154.9 cm (5' 1) 04/01/2025 10:3 5 AM CDT Body Mass Index 23.94 04/01/2025 10:35 AM CDT Plan of Treatment Health Maintenance Due Date Last Done Comments Mammogram 1978 TdaP Immunization 1978 Hepatitis B Immunization (1 of 3 - 19+ 3-dose series) 1997 Discussion re Starting/Frequency of Mammograms 2018 Cologuard 2023 Immunochemical Fecal Occult Blood 2023 Influenza Immunization (#1) 2025 SARS-COV-2 Immunization ( season) 2025 09/24/2023 Colonoscopy 04/11/2028 04/11/2018, 08/15/2015 Colorectal Cancer Screening 04/11/2028 Respiratory Syncytial Virus (RSV) Immunization (Adult) (1 - 1-dose 75+ series) 2053 Hepatitis C Virus (HCV) Screening Completed 10/27/2024 Human Papillomavirus (HPV) Immunization Aged Out No longer eligible b ased on patient's age to complete this topic Meningococcal Immunization (ACWY) Aged Out No longer eligible b ased on patient's age to complete this topic Pneumococcal Immunization Combined Aged Out No longer eligible b ased on patient's age to complete this topic Rotavirus Immunization Aged Out No lo nger eligible based on patient's age to complete this topic Medical Devices Explanted Type Area Business Development Analyst Device Identifier Shelf Expiration Date Model / Serial / Lot Stent Ureteral 5fr 2.1fr 24cm 2 Pigtail Curve 2 Durometer Taper Tip Loprfl Graduated Polaris Ultra - [id number] Implanted:Qty : 1 on 10/31/2024 by Joseph Mclaughlin MD at [facility] Explanted:Qty : 1 on 12/17/2024 at [facility] IMPLANT Left: Ureter JayCut 03/17/2027 [id number] / [id number] / [id number] Procedures Procedure Name Priority Date/Time Associated Diagnosis Comments LAB - MISCELLANEOUS 05/24/2025 1 2:00 AM CDT CHLAMYDIA, NEISSERIA, TRICHOMONAS BY CALIXTO (STD PANEL) 05/24/2025 12:00 AM CDT HEPATITIS C ANTIBODY Routine 10/27/2024 11:53 AM CATTLE RANCHER High risk sexual behavior, unspecified type HM COLONOSCOPY Routine 04/11/2018 from Last 3 Months or Most Recently Relevant to Health Maintenance Results * CHLAMYDIA, NEISSERIA, TRICHOMONAS BY CALIXTO (STD PANEL) (05/24/2025 12:00 AM CDT) 05/24/2025 us Provider Scan LAB SEND OUTS Final Result SCAN * LAB - MISCELLANEOUS (05/24/2025 12:00 AM CDT) 05/24/2025 us Provider Scan CHEMISTRY ORDERABLES Final Resul t Performing Organization Address City/[facility] Co de Phone Number SCAN * HEPATITIS C ANTIBODY (10/27/2024 11:53 AM CATTLE RANCHER) hepatitis C antibody 0.08 <1 S/CO 10/27/2024 10:58 PM CATTLE RANCHER [facility] Comment: Signal/Cutoff ratio < 0.79 is Nondetected Signal/Cutoff ratio 0.80-0.99 is Grayzone Signal/Cutoff ratio > 0.99 is Detected Supplemental assays are recommended if signal/cutoff ratio is >/=1.00. Signal/cutoff ratio result >/= 5.00 is 97% predictive of positivity for recombinant immunoblot assay (RIBA) and will be reported to the [place] Department of Public Health as required. Blood Venipuncture / Unknown 10/27/2024 11:53 AM CATTLE RANCHER 10/27/2024 11:53 AM CATTLE RANCHER us Sloane Nuñez BREAD WRAPPING MACHINE FEEDER, LABORER [employer] CHEMISTRY ORDERABLES Final Result Performing Organization Address City/[facility]/ZIP Co de Phone Number [facility] [address] [place] [address], [place] * COLONOSCOPY (04/11/2018) us Vaughn Álvarez MD PROCEDURE/MINOR SURGICAL ORDER POOJA Edited Result - Final from Last 3 Months or Most Recently Relevant to Health Maintenance Insurance MEDICAID BLUE CROSS [place] Advance Directives * Full Code (Latest Code Status on File) Date Activated Date Inactivated Comments 10/31/2024 1:21 AM CPR-Full Treatm ent: FULL ARREST: Attempt Resuscitation/CPR wit intubation and mechanical ventilation. PRE-ARREST: Use entire range of life support measures to stabilize the patient. * Full Code Date Activated Date Inactivated Comments 12/04/2015 5:47 PM 12/05/2015 8:08 PM Full Code: FULL ARREST: Attempt Resuscitation/CPR and use intubation and mechanical ventilation as indicated. PRE-ARREST: Use all measures to stabilize patient. Care Teams Extension Professor Relationship Specialty Start Date End Date Sloane Nuñez APRN, [employer] [address] [place] [address] PCP - General Certified Nurse Practitioner 10/27/24 Joseph Mclaughlin MD [address] [facility] [address] [place] [address] Consulting Physician Urology 11/09/24
--- OUTSIDE RECORDS SUMMARY | 2025-07-16 10:57 | XMS_ITS | Encounter Summary ---
Author Organization [facility] Address [address] [place] [address] Phone Care Team Providers Care Analytical Tech Name Role Phone Provider, None Primary Care Provider Unavailabl Sloane Beard APRN, MISDRAW HAND Primary Care Provider [phone]- [phone] Yasmin Luna Unavailable Unavailable Joseph Mclaughlin MD Unavailable Kayla SunW Unavailable Unavailab le Reason for Visit * Reason Comments Medication Refill Encounter Details Date Type Department Care Team (Late st Contact Info) Description 11/30/2021 Refill [facility] [place] [address] [place] [address] Tova Chaves Little, PAC [address] [place] [address] Medication Refill Social History Tobacco Use Types Packs/Day Years Used Date Smoking Tobacco: Former Cigarettes 0 02/26/2016 - 02/25/2017 Smokeless Tobacco: Never Alcohol Use Standard Drinks/Week Comments No 0 (1 standard drink = 0.6 oz pur e alcohol) Sexually Active Control Partners Comments Yes Male Comments No Sex and Gender Information Value Date Recorded Sex Assigned at Female 10/31/2024 12:21 AM HELPDESK MANAGER Legal Sex Female 8:44 PM CDT Gender Identity Female 10/31/2024 12:21 AM HELPDESK MANAGER Sexual Orientation Not on file 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 Not on file Not on file Not on file documented as of this encounter Plan of Treatment Not on file documented as of this encounter Visit Diagnoses Diagnosis Tachycardia Tachycardia, unspecified documented in this encounter Additional Health Concerns Assessment Noted Time PHQ-9 Depression Total Score: 16 018 10:00 AM CDT documented as of this encounter Care Teams Analytical Tech Relationship Specialty Start Date End Date Provider, None [place] PCP - General 07/24/22 10/26/24 Sloane Nuñez, SEAMAN OFFICER, MISDRAW HAND [address] [place] [address] PCP - General Certified Nurse Practitioner 10/27/24 Ysamin Luna Health Wire Inspector 10/29/24 11/13/24 Joseph Mclaughlin MD [address] [address] Consulting Physician Urology 11/09/24 Kayla Sun LSW [place] Laser Set Up Operator Retail Client Solutions Analyst 04/01/25 04/07/25 documented as of this encounter
--- OUTSIDE RECORDS SUMMARY | 2025-07-16 10:57 | XMS_ITS | Clinical Summary ---
Author Organization [facility] Address [facility] [place] [address] Care Team Providers Care Port Drier Name Role Phone None, Provider MD Primary Care Provider Unavaila ble Allergies Active Allergy Reactions Criticality Noted Date Comments Ampicillin Unknown 10/15/2019 Pt stated tolerated rocephin and amoxicillin Meperidine Unknown 10/15/2019 Promethazine Unknown 10/15/2019 Medications hydrOXYzine 10 MG tablet Take 1 tablet (10 mg total) by mouth 3 (three) times daily as needed. 30 tablet 10/15/2019 Active metoprolol succinate ER 25 MG 24 hr tablet Take 1 tablet (25 mg total) by mouth daily. 30 tablet 10/15/2019 Active Social History Tobacco Use Types Packs/Day Years Used Date Smoking Tobacco: Never Assessed Comments Unknown Sex and Gender Information Value Date Recorded Sex Assigned at Not on file Legal Sex Female 5:24 PM CDT Gender Identity Not on file Sexual Orientation Not on file Last Filed Vital Signs Vital Sign Reading Time Taken Comments Blood Pressure 106/85 10/15/2019 6:51 PM APPRAISAL COORDINATOR Pulse 91 10/15/2019 6:51 PM APPRAISAL COORDINATOR Temperature 37.1 C (98.7 F) 10/15/2019 6:51 PM APPRAISAL COORDINATOR Respiratory Rate 19 10/15/2019 6:51 PM APPRAISAL COORDINATOR Oxygen Saturation 98% 10/15/2019 6:51 PM APPRAISAL COORDINATOR Inhaled Oxygen Concentration - - Weight 61.9 kg (136 lb 7.4 oz) 10/15/2019 6:55 P M APPRAISAL COORDINATOR Height 154.9 cm (5' 1) 10/15/2019 6:51 PM APPRAISAL COORDINATOR Body Mass Index 25.78 10/15/2019 6:51 PM APPRAISAL COORDINATOR Plan of Treatment Health Maintenance Due Date Last Done Comments Cervical Cancer Screening Pa p Smear (Age 30 to 64) Every 3 Years 1978 Colorectal Cancer Screening Colonoscopy (10 Years) 1978 Annual Physical 1981 Hepatitis C 1996 DTaP, Tdap and Td Vaccines ( 1 - Tdap) 1997 Hepatitis B Vaccines (1 of 3 - 19+ 3-dose series) 1997 Cervical Cancer Screening Pa p with HPV Testing (Age 30 to 64) Every 5 Years 2008 Cervical Cancer Screening with HPV 2008 Mammogram Screening 2018 COVID-19 Vaccine ( - 2023-2 5 season) 2025 Meningococcal B Vaccine Aged Out No l onger eligible based on patient's age to complete this topic Meningococcal Vaccine Aged Out No rocael tish eligible based on patient's age to complete this topic Pneumococcal Vaccine: Pediat rics (0 to 5 Years) and At-Risk Patients (6 to 49 Years) Aged Out No longer eligible b ased on patient's age to complete this topic RSV Immunizations Under 20 Months Aged Out No longer eligible based on patient's age to complete this topic Insurance MEDICAID Care Teams Port Drier Relationship Specialty Start Date End Date None, Provider, PCP - General 10/15/19
[2025-07-16 10:58] VITALS: BP 96/71; PULSE 78; RESP 18; TEMP 36.1; O2SAT 100
--- NOTE | 2025-07-16 11:05 | ED_ITS ---
HPI - General Adult General Chief complaint: Wound/Laceration Stated complaint: covid test, cut by leonor nail on right thigh Time Seen by Provider: 07/16/25 11:30 Mode of arrival: ambulatory Limitations: no limitations History of Present Illness HPI narrative: 44-year-old female presents with multiple complaints. She reports she had a scratch with a leonor nail to her right thigh yesterday and she would like a tetanus shot. She reports the area is scabbing and she has been putting Neosporin and a Band-Aid on it. She denies any redness, warmth, swelling surrounding. She also reports she was exposed to COVID 3 days ago, yesterday s he started feeling unwell with body aches, runny nose. In the 3rd complaint she reports exposure to STDs, she has been having foul-smelling vaginal area and foul-smelling vaginal discharge. She reports urine frequency and urgency. Denies dysuria. She denies fever. Reports body aches MD complaint: Multiple complaint Related Data Home Medications ?Medication ?Instructions ?Recorded ?Confirmed ?Last Taken ?Type bupropion HCl 150 mg 24 hr tablet, mg PO 07/16/25 Unk nown History extended release Allergies Allergy/AdvReac Type Severity Reaction Status Date / Time fentanyl Allergy Unknown Unknown Verified 07/16/25 11:14 adhesive Allergy Rash Verified 07/16/25 11:06 ampicillin Allergy Rash Verified 07/16/25 11:06 Penicillins Allergy Rash Verified 07/16/25 11:06 ketorolac (From Toradol) AdvReac Nausea and Verified 07/16/25 11:06 Vomiting meperidine AdvReac Anxiety Verified 07/16/25 11:06 metoclopramide AdvReac Anxiety Verified 07/16/25 11:06 promethazine AdvReac Other Verified 07/16/25 11:06 Review of Systems Review of Systems: CONSTITUTIONAL: Reports malaise. Denies chills, sweats, or fever. EYES: Denies visual changes, redness, or discharge. ENT: Denies rhinorrhea, congestion. Denies sinus pain, otalgia or sore throat. CARDIOVASCULAR: Denies chest pain, palpitations, or edema. RESPIRATORY: Denies cough or dyspnea. GASTROINTESTINAL: Denies abdominal pain, vomiting, diarrhea. Reports nausea GENITOURINARY: Denies dysuria or hematuria. Reports frequency and urgency SKIN: Denies rash or itching. MUSCULOSKELETAL: Reports low back pain, and myalgia. NEUROLOGIC: Denies numbness, weakness, or headache. All systems reviewed & are unremarkable except as noted in HPI and below PMFSH Past Medical History Medical History (Updated 07/16/25 @ 11:52 by Maria Luz Truong NP) Kidney stone Panic attacks Palpitations TIA (transient ischemic attack) UTI (urinary tract infection) Surgical History Surgical History (Updated 08/02/24 @ 20:02 by Maureen Church NP) History of tonsillectomy and adenoidectomy Previous section Hx of cholecystectomy Hx of appendectomy History of partial hysterectomy Family History Family History Mother Family history of elevated blood lipids Other Family history non-contributory Social History Social History Smoking status: Current every day smoker Tobacco type: e-cigarettes/vaping Additional smoking assessment comments: former cigarette use Alcohol intake: former Alcohol use details: no alcohol since 2017 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 There is no relevant family history pertinent to the presenting complaint Exam Narrative: GENERAL: Well-appearing, well-nourished, and in no acute distress. HEAD: Normocephalic, atraumatic. EYES: PERRLA, sclera clear, and EOMI. No nystagmus. ENT: Nares clear. Mucous membranes moist. NECK: Supple. CHEST: No respiratory distress. Clear to auscultation. No bony deformities, no asymmetry. Speaks in full sentences. HEART: Regular rate and rhythm. No murmur heard. Normal peripheral pulses. ABDOMEN: Soft, nontender, nondistended, normal active bowel sounds, no palpable masses. EXTREMITIES: Normal range of motion. No edema. Normal strength and sensation. SKIN: Warm, dry, no visible rash. NEURO: Alert and oriented x3. No focal deficits. Cranial nerves II through XII grossly intact PSYCH: Normal mood and affect Course Course Emergency Course: Patient is aware of diagnosis, understands and agrees to treatment plan. Anticipatory guidance given. Patient agrees to follow-up as directed and is aware of reasons to seek care at the emergency department. Portions of this record may have been created with voice recognition software Level of Care: Express Care Visit Vital Signs Vital signs: Reviewed. Medical Decision Making MDM Narrative Medical decision making narrative: The patient was evaluated by myself in the express care. History is obtained from patient who is an independent historian and physical exam was performed.? Available medical records were reviewed at this time. ? Exam findings show no acute concerns or changes; patient is non-toxic appearing and is in no distress. Patient is appropriate for outpatient treatment and follow-up. ? I have evaluated and discussed social determinants of health with the patient that could potentially impact subsequent diagnosis and treatment plans. ? Differential diagnosis and treatment plan were discussed with the patient. Patient agrees with discussion and after shared medical decision making agrees with plan of care. All questions were answered to the patient's satisfaction. Critical Care Time Critical Care Time Critical Care Time: No Discharge Plan Discharge Clinical Impression: Urinary tract infection, Possible exposure to STD, Abrasion Patient Disposition: Home Condition: Stable Instructions: Antibiotic Form, Urinary Tract Infection in Women (ED) Additional Instructions: Urinary tract infection: We will send a urine culture to the lab; if the culture identifies an organism that the prescribed antibiotic will not treat, you will receive a phone call from an urgent care staff member and an appropriate antibiotic will be prescribed. -Your symptoms should begin to improve within a day of starting antibiotics. But you should finish all the antibiotic pills you get. Otherwise your infection might come back. -Also recommend: increase water intake. Tylenol/ibuprofen as needed for pain or fever -Follow-up with your primary care provider for urine recheck or seek ER visit if condition worsens with high fever, nausea, vomiting and severe back pain. STI: You have been tested for potential gonorrhea, chlamydia, and trichomoniasis today. You have received antibiotics to treat gonorrhea today, a prescription has been called into your pharmacy to treat chlamydia and trichomoniasis. You will receive a phone call in 2-3 days with the results of today's testing. It is very important that you avoid unprotected intercourse during treatment and for 7 days AFTER TREATMENT is complete and until your partner(s) have been treated. Please encourage your partner(s) to seek testing and treatment. When you have been exposed to sexually transmitted infections, it is important that you seek comprehensive testing, since we do not provide testing for all sexually transmitted infections. Some infections can have no symptoms, but cause serious health problems. Contact your health care provider or report to the emergency department if: You have genital swelling or pain, or unusual bleeding. You have joint pain, rash, swollen lymph nodes or night sweats. You are severe abdominal pain. You have a fever. Symptoms do not go away or they get worse even after treatment. You have bleeding or pain during sex. Patient Language: Turkish Prescriptions: New metronidazole 500 mg tablet 2,000 mg PO ONCE Qty: 4 0RF sulfamethoxazole-trimethoprim 800-160 mg tablet 1 tablet PO Q12H 7 Days Qty: 14 0RF doxycycline monohydrate 100 mg tablet 100 mg PO BID 7 Days Qty: 14 0RF No Action Zyrtec 10 mg capsule 10 mg PO DAILY 30 Days Qty: 30 0RF bupropion HCl 150 mg tablet extended release 24 hr PO metoprolol tartrate 50 mg tablet 50 mg PO BID Qty: 30 0RF Follow-up/Referrals: UNKNOWN,DOCTOR [Primary Care Provider] Stand Alone Forms: Work/School Release IP Time of Disposition: 11:55
[2025-07-16] MEDS: TETANUS,DIPHTHERIA,AC PERTUSSIS ADULT (0.5 ML) BOOSTRIX IM (11:18)
[2025-07-16 11:21] LABS: EDCOVIDSCREEN Negative (Negative)
[2025-07-16 11:40] LABS: EDUAAPPEAR Clear; EDUABILI Negative (Negative); EDUABLOOD Negative (Negative); EDUACOLOR1 Yellow; EDUAGLUCOSE Negative (Negative); EDUAKETONE Negative (Negative); EDUALEUKO 1+ (Negative); EDUANITRATE Positive (Negative); EDUAPH 5.5; EDUAPROTEIN Negative (Negative); EDUASPGRAVITY 1.030; EDUAUROBILI 0.2
[2025-07-16] MEDS: cefTRIAXone 500 MG, LIDOCAINE 1% LOCAL INJ 1 ML IM (11:45)
[2025-07-16 19:31] LABS: Trichomonas Vag PCR NOT DETECTED (NOT DETECTE)
== END 2025-07-16 12:06 | disposition home or self-care (01) ==
PROVIDERS: Emergency Provider Nurse Practitioner
DX: N39.0 Urinary tract infection, site not specified (principal); Z11.3 Encounter for screening for infections with a predominantly sexual mode of transmission; S70.311A Abrasion, right thigh, initial encounter; W45.0XXA Nail entering through skin, initial encounter; Z23 Encounter for immunization; Z86.73 Personal history of transient ischemic attack (TIA), and cerebral infarction without residual deficits; F17.290 Nicotine dependence, other tobacco product, uncomplicated
CPT/HCPCS: 81003; 87077; 87086; 87186; 87426; 87491; 87591; 87661; 90471; 90715; 96372; 99213; G0463; J0696; J2003

== ENCOUNTER 2025-10-22 08:03 | Emergency (ER) | payer BC, SELFPAY ==
--- OUTSIDE RECORDS SUMMARY | 2024-05-13 11:00 | XMS_ITS ---
Author Organization [facility] Address [address] [place] [address] Phone [phone] Care Team Providers Care Theater Usher Name Role Phone Daniela Sousa Primary Care Provider [phone] [place]-Jacobson Laura MCINTOSH Unavailable [phone] REASON FOR VISIT On CRU- New Eval Social History Sex Observation Social History Observation Description Sex Observation Female Encounters Date Time Type Facility Location Provider Diagnosis 05/13/2024 11:00 AM Office Visit [address] [place] [address] Daniela Sousa Plan Of Treatment No Information Medical (General) History Medical History History ICD Code heart palpitation constipation irritable bowel syndrome Surgical History Surgery Date(Month/Year) appendectomy cholecystectomy c section PARTIAL HYSTERECTOMY tonsilectomy Progress Notes * Abran MALINElainaOB: [birth year] (44 yo F)Acc No.[id number]:05/13/2024 UNLOCKED PROGRESS NOTE Patient: Meenu CONDON Provider: Niko Sousa DNP, PMHNP-BC, EARTH OBSERVATIONS CHIEF SCIENTIST :1980 A ge:43 Y S ex:Female Date:05/13/2024 Address:[address] [place], [place] [id number] Subjective: * Chief Complaints: * 1 . On CRU- New Eval. * Screening: * * Medical History: Objective: * Vitals: Assessment: Plan: * Treatment: * * Electronic signature of Jessica Sousa on 10/22/2025 at 08:06 AM CLERK SUPERVISOR Sign off status: Pending * Provider: Niko Sousa DNP, RICKYHNP-ISA, EARTH OBSERVATIONS CHIEF SCIENTIST Date: 0 05/13/2024 Generated for Printing/Faxing/eTransmitting on: 1 12/23/2024 08:06 AM CLERK SUPERVISOR
--- OUTSIDE RECORDS SUMMARY | 2025-10-22 08:06 | XMS_ITS | Encounter Summary ---
Author Organization [facility] Address [address] [place] [address] Phone Care Team Providers Care Pool Finisher Name Role Phone Provider, None Primary Care Provider Unavailabl Sloane Beard APRN, RETORT SETTER Primary Care Provider [phone]- [phone] Yasmin Luna Unavailable Unavailable Joseph Mclaughlin MD Unavailable Kayla Sun Unavailable Unavailab le Reason for Visit * Reason Comments Medication Refill Encounter Details Date Type Department Care Team (Late st Contact Info) Description 11/30/2021 Refill [facility] - Gastroenterology - [place] [address] [place] [address] Tova Chaves Little, PAC [address] [place] [address] Medication Refill Social History Tobacco Use Types Packs/Day Years Used Date Smoking Tobacco: Former Cigarettes 1 0 02/26/2016 - 02/25/2017 Smokeless Tobacco: Never Alcohol Use Standard Drinks/Week Comments No 0 (1 standard drink = 0.6 oz pur e alcohol) Sexually Active Control Partners Comments Yes Male Comments No Sex and Gender Information Value Date Recorded Sex Assigned at Female 10/31/2024 12:21 AM ORACLE APPLICATIONS ANALYST Legal Sex Female 8:44 PM CDT Gender Identity Female 10/31/2024 12:21 AM ORACLE APPLICATIONS ANALYST Sexual Orientation Not on file Occupation Industry [...] documented as of this encounter Care Teams Pool Finisher Relationship Specialty Start Date End Date Provider, None [place] PCP - General 07/24/22 10/26/24 Sloane Nuñez, LOG HAUL CHAIN FEEDER, RETORT SETTER [address] [place] [address] PCP - General Certified Nurse Practitioner 10/27/24 Yasmin Luna Health Power Reactor Supervisor 10/29/24 11/13/24 Joseph Mclaughlin MD [address] [address] Consulting Physician Urology 11/09/24 Kayla Sun LSW CO Helicopter Mechanic Chief [employer] 04/01/25 04/07/25 documented as of this encounter
--- OUTSIDE RECORDS SUMMARY | 2025-10-22 08:06 | XMS_ITS | Clinical Summary ---
Author Organization [facility] Address [address] [place] [address] Phone Care Team Providers Care Clinical Asst Name Role Phone Sloane Nuñez Tadeo MCINTOSH, DIRECTOR RADIO NEWS Primary Care Provider [phone]- [phone] Joseph Mclaughlin MD Unavailable Allergies Active Allergy [...] Tablet by mouth daily. 90 Tablet 2 02/17/20 25 Active ciprofloxacin (CIPRO) 500 MG Tablet take 1 tablet by mouth every 12 hours for 7 days 02/28/20 25 Active valACYclovir (VALTREX) 1 GM Tablet Take 1 Tablet by mouth 2 times daily. 20 Tablet 04/01/20 25 Active Additional Information Patient not taking.Reported on 07/29/2025 cromolyn (OPTICROM) 4 % SolutionIndication s:Allergic conjunctivitis of both eyes Place 1 Drop in affected eye(s) 4 times daily. Use in affected eye(s) until resolved 10 mL 04/20/20 25 Active Additional Information Patient not taking.Reported on 07/29/2025 buPROPion (WELLBUTRIN) 150 MG XL tablet Take 1 Tablet by mouth every morning. 90 Tablet 09/01/20 25 Active metoprolol tartrate (LOPRESSOR) 50 MG TabletIndications: Tachycardia Take 1 Tablet by mouth 2 times daily. 60 Tablet 2 09/01/20 25 Active Active Problems Problem Noted Date Diagnosed [...] Encounters Date Type Department Care Team Description 09/01/[address] [phone] Sloane Nuñez, RESEARCH HOME ECONOMIST, DIRECTOR RADIO NEWS Medication Refill 08/06/2025 Patient Outreach [address] [phone] Sloane Nuñez, RESEARCH HOME ECONOMIST, DIRECTOR RADIO NEWS 07/29/2025 Nurse Triage [facility] Central Call Center [address] [place] [phone] Sloane Nuñez, RESEARCH HOME ECONOMIST, DIRECTOR RADIO NEWS Advice Only; Urinary Pain; Abdominal Pain from Last 3 Months Immunizations Immunization Administration Dates Next Due Covid-19, Mrna, Lnp-s, Pf, T ris-sucrose, 30 Mcg/0.3 Ml (Tangible [employer]) 09/24/2023 Family History Medical History Relation Name [...] drink = 0.6 oz pur e alcohol) [facility] Utilities Answer Date Recorded In the past 12 months has th e electric, gas, oil, or water company [...] declined 10/31/2024 How often do you attend restorationist or religion serv ices? Patient declined 10/31/2024 Do you belong to any clubs o r organizations such as restorationist groups, unions, fraternal or athletic groups, or [...] Score - Questions 1-9 16 05/0 03/2025 [facility] [place] of Occupat ional Health - Occupational Stress [...] any time in the past 12 m [facility], were you homeless or living in a halfway (including now)? Patient declined 10/31/2024 Sexually Active Control Partners Comments Yes Male Comments No Sex and Gender Information Value Date Recorded Sex Assigned at Female 10/31/2024 12:21 AM ROOFING APPRENTICE Legal Sex Female 8:44 PM CDT Gender Identity Female 10/31/2024 12:21 AM ROOFING APPRENTICE Sexual Orientation Not on file Occupation Industry [...] Screening Completed 10/27/2024 Human Papillomavirus (HPV) Immunization (No Doses Required) Completed Meningococcal Immunization (ACWY) Aged Out No longer eligible b ased on patient's age to complete this topic Pneumococcal Immunization Combined Aged Out No longer eligible b ased on patient's age to complete this topic Rotavirus Immunization Aged Out No lo nger eligible based on patient's age to complete this topic Medical Devices Explanted Type Area Cant Gang Sawyer Device Identifier Shelf Expiration Date Model / Serial / Lot Stent Ureteral 5fr 2.1fr 24cm 2 Pigtail Curve 2 Durometer Taper Tip Loprfl Graduated Polaris Ultra - [id number] Implanted:Qty : 1 on 10/31/2024 by Joseph Mclaughlin MD at [facility] Explanted:Qty : 1 on 12/17/2024 at [facility] IMPLANT Left: Ureter Trovali 03/17/2027 [id number] / [id number] / [id number] Procedures Procedure Name Priority Date/Time Associated Diagnosis Comments HEPATITIS C ANTIBODY Routine 10/27/2024 11:53 AM ROOFING APPRENTICE High risk sexual behavior, unspecified type HM COLONOSCOPY Routine 04/11/2018 from Last 3 Months or Most Recently Relevant to Health Maintenance Results * HEPATITIS C ANTIBODY (10/27/2024 11:53 AM ROOFING APPRENTICE) hepatitis C antibody 0.08 <1 S/CO 10/27/2024 10:58 PM ROOFING APPRENTICE [facility] Comment: Signal/Cutoff ratio < 0.79 is Nondetected Signal/Cutoff ratio 0.80-0.99 is Grayzone Signal/Cutoff ratio > 0.99 is Detected Supplemental assays are recommended if signal/cutoff ratio is >/=1.00. Signal/cutoff ratio result >/= 5.00 is 97% predictive of positivity for recombinant immunoblot assay (RIBA) and will be reported to the [place] Department of Public [facility] as required. Blood Venipuncture / Unknown 10/27/2024 11:53 AM ROOFING APPRENTICE 10/27/2024 11:53 AM ROOFING APPRENTICE us Sloane Nuñez APRN, DIRECTOR RADIO NEWS CHEMISTRY ORDERABLES Final Result [facility] [address] [place] [address], * COLONOSCOPY (04/11/2018) us Vaughn Álvarez MD [...] all measures to stabilize patient. Care Teams Clinical Asst Relationship Specialty Start Date End Date Sloane Nuñze, RESEARCH HOME ECONOMIST, DIRECTOR RADIO NEWS [address] [place] [address] PCP - General Certified Nurse Practitioner 10/27/24 Joseph Mclaughlin MD [address] [address] Consulting Physician Urology 11/09/24
--- OUTSIDE RECORDS SUMMARY | 2025-10-22 08:06 | XMS_ITS | Encounter Summary ---
Author Organization [facility] Address [address] [place] [address] Phone Care Team Providers Care Application Programmer Analyst Name Role Phone Sloane Nuñez APRN, FINISHING RANGE OPERATOR Primary Care Provider [phone]- [phone] Joseph Mclaughlin MD Unavailable Kayla Sun SERVICES DELIVERY DRIVER Unavailable Unavailab le Reason for Visit * Reason Onset Date Comments Rash 03/31/2025 Encounter Details Date Type Department Care Team (Late st Contact Info) Description 03/31/2025 Nurse Triage [facility] Call [facility] [address] [place] [address] Sloane Nuñez APRN, FINISHING RANGE OPERATOR [address] [facility] [place] [address] Rash Social History Tobacco Use Types Packs/Day Years Used Date Smoking Tobacco: Former Cigarettes 1 0 02/26/2016 - 02/25/2017 Smokeless Tobacco: Never Alcohol Use Standard Drinks/Week Comments Not Currently 0 (1 standard drink = 0.6 oz pur e alcohol) [facility] Utilities Answer Date Recorded In the past 12 months has [employer] electric, gas, oil, or water company threatened [...] declined 10/31/2024 How often do you attend presybeterian or methodist serv ices? Patient declined 10/31/2024 Do you belong to any clubs o r organizations such as presybeterian groups, unions, fraternal or athletic groups, or [...] Score - Questions 1-9 16 05/0 03/2025 [facility] of Occupat ional [facility] - Occupational Stress Questionnaire Answer Date Recorded [...] in the past 12 m [facility], were you homeless or living in a prison (including now)? 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 She was not happy about having to be seen and states I swear doctors now a days are money hungry this is ridiculous, I have had this reaction for 40 years. Explained to patient best practice is for the provider to evaluate the rash to ensure proper treatment plan and medications are given. No more questions for this RN Appointment made today with PCP * Telephone Encounter - Sloane Nuñez APRN, CNP - 04/01/2025 8:11 AM CDT She should be seen. * Telephone Encounter - Rufina Anguiano RN - 03/31/2025 2:11 PM CDT SITUATION: Poison rosa BACKGROUND: Patient contacting PCP office. ASSESSMENT: Symptom Description / Location: Poison icy rash present on bilateral hands Has rash present on genital area, face, and lips Denies shortness of breath, coughing, weakness RECOMMENDATION: Recommended to be seen today, patient does not have a vehicle to be seen anywhere. Caller understands recommendation, but refuses disposition and is requesting provider to order an oral steroid pack.Care advice provided per triage guideline. Caller verbalized understanding. Encounter routed to provider high priority to notify. - See care advice and disposition for Guideline. First positive answer recorded, all responses to prior questions were negative. If symptoms increase, change or if new symptoms develop, call your health care provider or call back. Recommendations were based on caller information and is not a diagnosis. Verified and reviewed all triage information with caller. Reason for Disposition Severe poison rosa, oak, or sumac reaction in the past, and face or genitals involved Protocols used: Poison Rosa - [place] - [place]-A-[place] * Telephone Encounter - Heather Leal - 03/31/2025 2:10 PM CDT Symptom: Rash or Redness - Widespread Outcome: Schedule an appointment within 3 days Reason: Caller denied all higher acuity questions The caller rejected this outcome. Caller Denied: * Trouble breathing * Dark red or purple spots * Large blisters on skin * Trouble swallowing * Fever Poison Rosa very allergic documented in this encounter Plan of Treatment Not on file documented as of this encounter Visit Diagnoses Not on filedocumented in this encounter Additional Health Concerns Assessment Noted Time PHQ-9 Depression Total Score: 16 025 1:17 PM CDT documented as of this encounter Care Teams Application Programmer Analyst Relationship Specialty Start Date End Date Sloane Nuñez, GREEN WARE CASTER, FINISHING RANGE OPERATOR [address] [place] [address] PCP - General Certified Nurse Practitioner 10/27/24 Joseph Mclaughlin MD [address] [address] Consulting Physician Urology 11/09/24 Kayla Sun, SERVICES DELIVERY DRIVER [place] Team Otr Truck Driver Clipper Automatic 04/01/25 04/07/25 documented as of this encounter
--- OUTSIDE RECORDS SUMMARY | 2025-10-22 08:06 | XMS_ITS | Clinical Summary ---
Author Organization [facility] Address [facility] [place] [address] Care Team Providers Care Wire Brusher Name Role Phone None, Provider MD Primary [...] Comments Blood Pressure 106/85 10/15/2019 6:51 PM LIVE IN HOUSEKEEPER NANNY Pulse 91 10/15/2019 6:51 PM LIVE IN HOUSEKEEPER NANNY Temperature 37.1 C (98.7 F) 10/15/2019 6:51 PM LIVE IN HOUSEKEEPER NANNY Respiratory Rate 19 10/15/2019 6:51 PM LIVE IN HOUSEKEEPER NANNY Oxygen Saturation 98% 10/15/2019 6:51 PM LIVE IN HOUSEKEEPER NANNY Inhaled Oxygen Concentration - - Weight 61.9 kg (136 lb 7.4 oz) 10/15/2019 6:55 P M LIVE IN HOUSEKEEPER NANNY Height 154.9 cm (5' 1) 10/15/2019 6:51 PM LIVE IN HOUSEKEEPER NANNY Body Mass Index 25.78 10/15/2019 6:51 PM LIVE IN HOUSEKEEPER NANNY Plan of Treatment Health Maintenance Due Date [...] Mammogram Screening 2018 COVID-19 Vaccine ( - 2024-2 6 season) 2025 Influenza Adult (#1) 2025 Hepatitis A Vaccines Aged Out No long er eligible based on patient's age to complete this topic Meningococcal B Vaccine Aged Out No l [...] complete this topic Insurance MEDICAID Care Teams Wire Brusher Relationship Specialty Start Date End Date None, Provider, PCP - General 10/15/19
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
--- OUTSIDE RECORDS SUMMARY | 2025-10-22 08:06 | XMS_ITS | Encounter Summary ---
Author Organization [facility] Address [address] [place] [address] Phone Care Team Providers Care Sheriff Name Role Phone Sloane Nuñez APRN, TUMBLE TAILSTOCK TURRET LATHE OPERATOR Primary Care Provider [phone] Joseph Mclaughlin MD Unavailable Reason for Visit * Reason Onset Date Comments Advice Only 07/29/2025 Urinary Pain 07/29/2025 Abdominal Pain 07/29/2025 Encounter Details Date Type Department Care Team (Late st Contact Info) Description 07/29/2025 Nurse Triage [facility] [address] [place] [address] Sloane Nuñez APRN, TUMBLE TAILSTOCK TURRET LATHE OPERATOR [address] [place] [place] [address] Advice Only; Urinary Pain; Abdominal Pain Social History Tobacco Use Types Packs/Day Years Used Date Smoking Tobacco: Former Cigarettes 1 0 02/26/2016 - 02/25/2017 Smokeless Tobacco: Never Alcohol Use Standard Drinks/Week Comments Not Currently 0 (1 standard drink = 0.6 oz pur e alcohol) [facility] Utilities Answer Date Recorded In the past 12 months has [employer], gas, oil, or water company threatened to [...] declined 10/31/2024 How often do you attend catholic or spiritism serv ices? Patient declined 10/31/2024 Do you belong to any clubs o r organizations such as catholic groups, unions, fraternal or athletic groups, or [...] Score - Questions 1-9 16 05/0 03/2025 [facility] Occupat ional Health - Occupational Stress [...] any time in the past 12 m [facility], were you homeless or living in a fci (including now)? 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 Assessment: Below provider response given to patient. Recommendation: Patient agreeable and ended call. * Telephone Encounter - Junie Lai RN - 07/29/2025 2:51 PM CDT Attempted to contact Meenu. No answer, left message to call back. * Telephone Encounter - Ina Colin APRN, CNP - 07/29/2025 2:29 PM CDT Needs seen for UA - ok to drop a specimen off here or to hospital * Telephone Encounter - Martina Fuller RN - 07/29/2025 2:09 PM CDT SITUATION: 44 y.o. with asking for antibiotic, can't come to office, urgency, frequency BACKGROUND: Patient contacting PCP office. Started today , kidney stone hx Per chart review, last urinary tract infection 05/24 and October of 2024 New sex partner and says she gets them when happens ASSESSMENT: Symptom Description / Location: Frequency and urgency Stent for kidney stone in October and still in place Pressure in bladder area No back pain No fever Treatment / Response: No reported treatment. Pain ratin/10 Pain timetable: Constant Pain descriptors: Pressure Denies fever. RECOMMENDATION: not wanting to [facility] to [facility] or office just asking forantibiotics Doesn't meet criteria due to kidney stones for standing order and she doesn't want tested. Told herthat is the best way to ensure we are treating appropriately Caller not agreeable to highest disposition listed: See in Office or Video Visit Today. Care advice provided per triage guideline. Caller verbalized understanding. Encounter routed to provider high priority to notify. Discussed utilizing [employer] to: discuss if they would prefer a Active Implantst message or phone call response. Response is preferred via Phone Call. - Reason for Disposition: > 2 UTIs in last year . Protocols Used: Urination Pain - [id number]-WM--Standing order available See care advice and disposition for Guideline. First positive answer recorded, all responses to prior questions were negative. If symptoms increase, change or if new symptoms develop, call your health care provider or call back. Recommendations were based on caller information and is not a diagnosis. Verified and reviewed all triage information with caller. * Telephone Encounter - Flako Haddad - 07/29/2025 2:06 PM CDT Symptom: Urine Symptoms Outcome: Schedule an urgent appointment within same day Reason: Pain when passing urine (peeing) The caller accepted this outcome. Caller Denied: * Can't pass urine (can't pee) documented in this encounter Plan of Treatment Scheduled Orders Name Type Priority Associated Diagnoses Orde r Schedule URINALYSIS REFLEX IF INDICATED BY ABNORMAL RESULTS Lab Routine Urinary frequency Expected: 07/29/2025, Expires: 10/27/2025 documented as of this encounter Visit Diagnoses Diagnosis Urinary frequency- Primary documented in this encounter Additional Health Concerns Assessment Noted Time PHQ-9 Depression Total Score: 16 025 1:17 PM CDT documented as of this encounter Care Teams Sheriff Relationship Specialty Start Date End Date Sloane Nuñez, ASIAN STUDIES PROFESSOR, TUMBLE TAILSTOCK TURRET LATHE OPERATOR [address] [place] [address] PCP - General Certified Nurse Practitioner 10/27/24 Joseph Mclaughlin MD [address] [address] Consulting Physician Urology 11/09/24 documented as of this encounter
--- NOTE | 2025-10-22 08:08 | ED.URI ---
HPI - URI/Sore Throat General Chief Complaint: Skin/Abscess/Foreign Body Stated Complaint: Skin Problem/Rash Time Seen by Provider: 10/22/25 08:08 Source: patient Mode of arrival: ambulatory Limitations: no limitations History of Present Illness HPI Narrative: Meenu is a 44 year old female patient presenting to the clinic today with multiple complaints. C/o skin rash to hands x1 days-exposure to scabies, insect bite to the right elbow x2 days, and foul smelling white vaginal discharge x3 days. She also thinks she may have head lice-thought she pulled out a knit yesterday. States she is concerned for STIs as she does have a new sexual partner. Last intercourse with this partner was unprotected and was yesterday. Has not done any treatment for her symptoms. History of partial hysterectomy. Related Data Home Medications ?Medication ?Instructions ?Recorded ?Confirmed ?Last Taken ?Type bupropion HCl 150 mg 24 hr tablet, mg PO 07/16/25 Unknown History extended release Allergies Allergy/AdvReac Type Severity Reaction Status Date / Time fentanyl Allergy Unknown Unknown Verified 10/22/25 08:15 adhesive Allergy Rash Verified 10/22/25 08:15 ampicillin Allergy Rash Verified 10/22/25 08:15 Penicillins Allergy Rash Verified 10/22/25 08:15 ketorolac (From Toradol) AdvReac Nausea and Verified 10/22/25 08:15 Vomiting meperidine AdvReac Anxiety Verified 10/22/25 08:15 metoclopramide AdvReac Anxiety Verified 10/22/25 08:15 promethazine AdvReac Other Verified 10/22/25 08:15 Review of Systems Review of Systems: Pertinent positives per HPI. Patient denies any fever, chills, headache, visual changes, dizziness, cough, runny nose, sore throat, shortness of breath, chest pain, palpitations, nausea, vomiting, diarrhea, constipation, abdominal pain, or any urinary issues. [facility] Past Medical History Medical History (Updated 10/22/25 @ 08:36 by Pepito Davalos APRN) Kidney stone Panic attacks Palpitations TIA (transient ischemic attack) UTI (urinary tract infection) Surgical History Surgical History History of tonsillectomy and adenoidectomy Previous section Hx of cholecystectomy Hx of appendectomy History of partial hysterectomy Family History Family History Mother Family history of elevated blood lipids Other Family history non-contributory Social History Social History Smoking status: Current every day smoker Tobacco type: e-cigarettes/vaping Additional smoking assessment comments: former cigarette use Alcohol intake: former Alcohol use details: no alcohol since 2017 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 There is no relevant family history pertinent to the patient complaint. Exam Narrative: General: Well-developed, well nourished, in no apparent distress Head: Normocephalic, atraumatic. No visible head lice infestation Cardio: Regular rate and rhythm, s1 and s2 normal, no murmur appreciated. Resp: Clear to auscultation bilaterally, no rhonchi, rales, wheezing or rubs. Abdomen: Soft, pliable, bowel sounds present in all quadrants, non-tender to palpation, no CVAT tenderness. : Deferred-patient self swab Integumentary: Buck[place], warm, and dry, intact without lesion, red itchy rash in between fingers and to the knuckles of bilateral hands, no tunneling noted, itchy insect bite with mild redness to the right posterior elbow without induration Course Course Level of Care: Express Care Visit Vital Signs Vital signs: Vital Signs Temperature 36.1 C L 10/22/25 08:17 Pulse Rate 82 10/22/25 08:17 Respiratory Rate 20 10/22/25 08:17 Blood Pressure 99/72 L 10/22/25 08:17 Pulse Oximetry 100 10/22/25 08:17 Oxygen Delivery Room Air 10/22/25 08:17 Temperature 36.1 C L 10/22/25 08:17 Pulse Rate 82 10/22/25 08:17 Respiratory Rate 20 10/22/25 08:17 Blood Pressure 99/72 L 10/22/25 08:17 Pulse Oximetry 100 10/22/25 08:17 Oxygen Delivery Room Air 10/22/25 08:17 MDM MDM Narrative Medical decision making narrative: At the time of visit patient is resting comfortably on the exam table. Patient appears to be nontoxic. C/o skin rash to hands x1 days-exposure to scabies, insect bite to the right elbow x2 days, and foul smelling white vaginal discharge x3 days. She also thinks she may have head lice-thought she pulled out a knit yesterday. States she is concerned for STIs as she does have a new sexual partner. Last intercourse with this partner was unprotected and was yesterday. Has not done any treatment for her symptoms. History partial hysterectomy. On exam patient has no sign of some head lice, she has an insect bite with mild redness without any induration to the right elbow, red itchy rash to bilateral hands in between fingers, no obvious sign of tunneling, her abdomen is soft, pliable, nondistended, bowel sounds present, no CVAT tenderness, no suprapubic pain, no organomegaly, vaginal exam deferred patient self swab. States vaginal discharge is white/creamy and odorous. Patient has had Trichomonas in the past and is concerned it may be Trichomonas. Labs: Dirty urine was obtained and sent to the lab to test for chlamydia, gonorrhea, and Trichomonas. Bacterial vaginosis and genital culture swabs were also obtained by patient and sent to the lab. Plan: Patient has odorous vaginal discharge, exposure to scabies, concern for STIs, an insect bite to the right elbow. Prescription for metronidazole was sent to the pharmacy to cover for Trichomonas and bacterial vaginosis. Will also send in prescription for permethrin to cover for scabies infection. Work note was given. Supportive measures were discussed with the patient and they voiced understanding discharge instructions and agrees to treatment plan. Return precautions reviewed Differential Diagnosis Differential Diagnosis: Differential diagnostic considerations for skin/abscess/foreign body issues include abscess of skin or subcutaneous tissue, viral exanthem, dermatophytosis, urticaria, herpes zoster, allergic reaction to drug, cellulitis, eczema, insect bites, impetigo, contact dermatitis, vasculitis, parasitic infection. Differential diagnostic considerations for female urogenital issues include urinary tract infection, bacterial vaginosis, cervicitis, ovarian cyst, vaginitis, STI exposure, ovarian torsion, ectopic , cyst of Bartholin?s gland, cystitis, dysmenorrhea. Discharge Plan Discharge Clinical Impression: Concern about STD in female without diagnosis, Scabies exposure, Vaginal discharge, Insect bite Patient Disposition: Home Condition: Stable Instructions: Antibiotic Form, Bacterial Vaginosis (ED), Insect Bite or Sting (ED), Scabies (ED) Additional Instructions: Vaginal discharge instructions: Take metronidazole as prescribed-this will cover you for bacterial vaginosis and Trichomonas. We have tested/treated you for STIs in the clinic today. Avoid any sexual activity- includes oral, anal, or vaginal intercourse until you get results back and have completed any additional recommended treatment regimens. We will contact you if testing is positive and make sure your treatment was appropriate for the type of STI. If symptoms worsen after treatment recommend reevaluation with your PCP or STI clinic. Skin discharge instructions: Apply permethrin cream as directed Avoid hot showers Avoid scratching as this can cause a secondary infection May take benadryl 25-50mg every 6 hours as needed for itching. May apply Benadryl or hydrocortisone 1% cream to the affected areas Follow up with your PCP in 3-5 days if symptoms persist or sooner if they worsen Go to the Emergency Room if symptoms worsen- fever, rash spreading with treatment, shortness of breath, tongue swelling, drooling, or chest pain Patient Language: Macanese Prescriptions: New permethrin 5 % cream 1 applic topical Q14D Qty: 60 0RF Rx Instructions: apply second treatment 14 days after first treatment if live lice remain metronidazole 500 mg tablet 500 mg PO BID 7 Days Qty: 14 0RF No Action bupropion HCl 150 mg tablet extended release 24 hr PO metoprolol tartrate 50 mg tablet 50 mg PO BID Qty: 30 0RF Follow-up/Referrals: PHYSICIAN NOT ON STAFF,NONSTAFF [Primary Care Provider] Stand Alone Forms: Work/School Release IP Time of Disposition: 08:37 Quality NIHSS Nursing Documentation ED NIHSS nursing documentation: reviewed/agree
[2025-10-22 08:17] VITALS: BP 99/72; PULSE 82; RESP 20; TEMP 36.1; O2SAT 100
[2025-10-22 20:05] LABS: Trichomonas Vag PCR NOT DETECTED (NOT DETECTE)
== END 2025-10-22 08:41 | disposition home or self-care (01) ==
PROVIDERS: Emergency Provider Nurse Practitioner Family
DX: S50.361A Insect bite (nonvenomous) of right elbow, initial encounter (principal); W57.XXXA Bitten or stung by nonvenomous insect and other nonvenomous arthropods, initial encounter; N89.8 Other specified noninflammatory disorders of vagina; Z20.2 Contact with and (suspected) exposure to infections with a predominantly sexual mode of transmission; Z20.7 Contact with and (suspected) exposure to pediculosis, acariasis and other infestations; F17.290 Nicotine dependence, other tobacco product, uncomplicated; Z86.73 Personal history of transient ischemic attack (TIA), and cerebral infarction without residual deficits; Z90.711 Acquired absence of uterus with remaining cervical stump
CPT/HCPCS: 87070; 87491; 87591; 87661; 87798; 99213; G0463